=== PATIENT | female | born 1965 | race Caucasian/White ===

== ENCOUNTER 2017-05-09 05:04 | Day surgery (SDC) | payer BC ==
[2017-05-07 08:49] LABS: HEMATOCRIT 43.7 % (36.0-48.0); HEMOGLOBIN 14.7 g/dL (12-16); MCH 30.1 pg (26.0-34.0); MCHC 33.6 g/dL (31.0-37.0); MCV 89.4 fL (80.0-100.0); RBC 4.89 10x6/uL (4.00-5.40); RDW 13.2 % (11.5-14.5); WBC 6.7 10x3/uL (4.8-10.8)
[~2017-05-09] VITALS: Ht 160 cm; Wt 86.2 kg
[~2017-05-09 05:04] MED LIST: NATURE-THROID32.4 MG PO; PHENOBARBITAL30 MG PO; PROMETRIUM200 MG PO
[2017-05-09 08:37] VITALS: BP 128/64; Ht 160 cm; Wt 86.2 kg
[2017-05-09 09:03] LABS: HCG URINE NEGATIVE (NEGATIVE)
--- NOTE | 2017-05-09 14:19 | NUR ---
1330--IV DC'D, PT UP TO DRESS AT THIS TIME. SCOTT IRAHETA 1400--DISCHARGE INSTRUCTIONS GIVEN, PT VERBALIZES UNDERSTANDING. PT OFF UNIT VIA WC. SCOTT IRAHETA
--- NOTE | 2017-05-11 11:13 | HP ---
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 The patient's history and physical examination is on the chart. It is typed history and physical. It is unchanged since the patient saw me in the office. The risks, possible complications and alternatives to procedure were explained to the patient. She elects to proceed. This is a patient of Dr. Bermeo'janell. TRANSINT:[id number] Voice Confirmation ID: [id number] DOCUMENT ID: [id number] KAILYN OTOOLE MD at 1113 CC: LEILANI ROBERTS DO, [place], TERRI MD and COLBY BERMEO [id number] DICTATION DATE: 05/09/17 1225 HOSPITAL TELEVISION RENTAL CLERK: 05/09/17 1319 [facility] 05/09/[address] [address]
--- NOTE | 2017-05-11 11:13 | OP ---
PATIENT NAME: MARIANNA CELIS MEDICAL RECORD: [id number] :63 LOCATION:D.OPS ADMISSION DATE: SURGEON: NIKKO OTOOLE MD DATE OF OPERATION: 05/09/2017 PREOPERATIVE DIAGNOSIS: History of recurrent serrated adenoma of the cecum, which has been tattooed. POSTOPERATIVE DIAGNOSES: 1. History of recurrent serrated adenoma of the cecum, which has been tattooed with no evidence of recurrence; however, there was eschar present within cecum. 2. A new 1.1-cm sessile polyp at 1.1 meters. PROCEDURES: 1. Total colonoscopy to cecum. 2. Hot biopsy forceps polypectomy times 1. 3. Biopsy of scar in the cecum with treatment utilizing the argon plasma health information coder. SURGEON: Nikko Otoole MD REEL HOOKER: None. BLOOD LOSS: Minimal. ANESTHESIA: General. COMPLICATIONS: None. The risks, possible complications, and alternatives to the procedure were explained to the patient. She elects to proceed. OPERATIVE COURSE: The patient was conveyed to the operating room electively on 05/09/2017. General anesthesia was induced by the anesthesia staff. The patient was placed in the Ann position. A digital rectal examination was performed. A colonoscope was inserted through the anus. It was easily advanced to the cecum. Upon withdrawal, I dragged the folds. I irrigated and aspirated extensively. I noted no tattoo in the cecum. I noted no recurrent polyp. There was a scar, which I biopsied utilizing the cold endoscopic biopsy forceps. I then treated this area with the argon plasma health information coder utilizing the right colon setting in the forced mode. I continued to withdraw the endoscope. I identified a sessile polyp at 1.1 m. This was removed in its entirety utilizing the hot biopsy forceps polypectomy technique. I then slowly withdrew the endoscope. I dragged the folds. The pullback was greater than 19-minute pullback. A retroflexed view was obtained in the rectum. I then unretroflexed the scope and removed it under direct vision. I will plan to see the patient in my office in 2-3 weeks. I will plan for her next colonoscopy with the argon plasma health information coder to take place in 1 year as she has had a recurrent serrated adenoma. TRANSINT:[id number] Voice Confirmation ID: [id number] DOCUMENT ID: [id number] OPERATIVE REPORT [id number] MARIANNA CELIS ROBERT MD at 1113 CC: [id number] DICTATION DATE: 05/09/17 1240 STATE [employer]AL [employer]ATIONS DEPUTY DIRECTOR: 05/09/17 1619 [facility] 05/09/17 [id number] [place] [address]
== END 2017-05-09 14:00 | disposition home or self-care (01) ==
LOC: D.OPS 05:04 → D.PAN 11:15 → D.OPS 11:15
PROVIDERS: Anesthesiology; Surgery
DX: K63.5 Polyp of colon (principal); E03.9 Hypothyroidism, unspecified; K21.9 Gastro-esophageal reflux disease without esophagitis; E66.9 Obesity, unspecified; Z68.33 Body mass index [BMI] 33.0-33.9, adult; Z01.812 Encounter for preprocedural laboratory examination

== ENCOUNTER 2018-05-29 09:25 | Day surgery (SDC) | payer BC ==
[2018-05-27 11:58] LABS: HEMATOCRIT 42.3 % (36.0-48.0); HEMOGLOBIN 14.5 g/dL (12-16); MCH 29.1 pg (26.0-34.0); MCHC 34.3 g/dL (31.0-37.0); MCV 84.8 fL (80.0-100.0); RBC 4.99 10x6/uL (4.00-5.40); RDW 13.5 % (11.5-14.5); WBC 6.1 10x3/uL (4.8-10.8)
[~2018-05-29] VITALS: Ht 160 cm; Wt 93.0 kg
--- NOTE | ~2018-05-29 | OP ---
PATIENT NAME: MARIANNA CELIS MEDICAL RECORD: [id number] :63 LOCATION:D.OPS ADMISSION DATE: SURGEON: KAILYN OTOOLE MD DATE OF OPERATION: 05/29/2018 PREOPERATIVE DIAGNOSIS: History of recurrent serrated adenoma of the cecum, which had been tattooed in the past and there was no evidence of recurrence back in April of 2017. POSTOPERATIVE DIAGNOSES: History of recurrent serrated adenoma of the cecum, which had been tattooed. I saw no evidence of the tattoo; however, there was recurrence of the adenoma within a scar and this is a periappendiceal polyp. PROCEDURES: 1. Total colonoscopy to cecum. 2. Polypectomy utilizing endoscopic mucosal resection; however, the polyp was lost. Tattooing on either side of the polypectomy site for possible surgical resection in the future. 3. Placement of 3 endoscopic clips to reinforce the area where the polypectomy had been performed. SURGEON: Kailyn Otoole MD LOCAL COMPANY REFRIGERATED TRUCK DRIVER: None. BLOOD LOSS: Minimal. ANESTHESIA: General. COMPLICATIONS: None. The risks, possible complications, and alternatives to the procedure were explained to the patient. She elected to proceed. The discussion specifically included, but was not limited to, bleeding, requiring emergency reoperation; infection; endoscopic perforation as well as possible need for an operative procedure in the future. OPERATIVE COURSE: The patient was conveyed to the operating room electively on 05/29/2018. General anesthesia was induced by the anesthesia staff. The patient was placed in the Ann position. Digital rectal examination was performed. A colonoscope was inserted through the anus. It was easily advanced to the cecum. The prep was inadequate. I irrigated in the cecum vigorously. I identified of the polyp. I advanced sclerotherapy needle in 3 areas around the polyp. I performed a submucosal injection of Eleview. There was a good lift to the polyp. Endoscopic snare was advanced. I was able to snare across the base of the polyp. During the process of irrigation and suctioning however, the polyp was lost despite the use of a polyp trap. I had to go fairly deep in order to remove the polyp. A row of endoscopic clips was applied. These were 3 endoscopic clips in order to help avoid perforation as the patient will be at significant risk for postpolypectomy syndrome or delayed perforation. I then advanced a sclerotherapy needle and I injected tattoo on either side of the polypectomy site in the submucosal space. I then slowly withdrew the OPERATIVE REPORT [id number] MARIANNA CELIS endoscope. I irrigated and aspirated extensively. The pullback was greater than a 19-minute pullback. I utilized normal imaging as well as narrow band imaging. A retroflexed view was obtained in the rectum. I then unretroflexed the scope and removed it under direct vision. There is no reason for the patient to follow up with me in the office. That is because there is no pathology to review with the patient. I will give the patient the option of undergoing a laparoscopic cecectomy in the future if she would like. TRANSINT:[id number] Voice Confirmation ID: [id number] DOCUMENT ID: [id number] KAILYN OTOOLE MD at 1415 CC: COLBY ORTEGA and FAUSTO HERNANDEZ MD [id number] DICTATION DATE: 05/29/18 1716 TAPE SEWING MACHINE OPERATOR: 05/29/18 1840 [facility] 05/29/18 [facility] [address] [place] [address]
[~2018-05-29 09:25] MED LIST changes: +FLUTICASONE PRO16 GM NASAL
[2018-05-29 11:02] VITALS: BP 122/68; Ht 160 cm; Wt 93.0 kg
== END 2018-05-29 19:05 | disposition home or self-care (01) ==
LOC: D.OPS 09:25 → D.PAN 11:45 → D.OPS 11:45 → D.PAN 12:15 → D.OPS 12:15
PROVIDERS: Anesthesiology
DX: K63.5 Polyp of colon (principal); Z87.19 Personal history of other diseases of the digestive system

== ENCOUNTER 2018-07-31 06:30 | Inpatient (IN) | payer BC ==
[2018-07-30 10:05] LABS: MCH 28.7 pg (26.0-34.0); MCHC 33.3 g/dL (31.0-37.0); MCV 86.1 fL (80.0-100.0); MEAN PLATELET VOLUME 10.1 fL (7.4-10.4); RBC 4.53 10x6/uL (4.00-5.40); RDW 14.3 % (11.5-14.5); WBC 6.3 10x3/uL (4.8-10.8)
[2018-07-30 10:23] LABS: CALC OSMOLALITY 280 mosm/kg (275-300); CALCIUM 9.4 mg/dL (8.5-10.1); CARBON DIOXIDE 26.2 mmol/L (21.0-32.0); CHLORIDE - SERUM 103 mmol/L (98-107); CREATININE - SERUM 0.8 mg/dL (0.6-1.3); GLUCOSE 90 mg/dL (74-106); POTASSIUM - SERUM 4.4 mmol/L (3.5-5.1); SODIUM 140 mmol/L (136-145); UREA NITROGEN 17 mg/dL (7-18); eGFR NON AFRICAN AMERICAN 79 mL/min (90-120)
[2018-07-31] VITALS (10 sets, daily range): BP systolic 94–146; BP diastolic 42–66; Ht 160 cm; Wt 95.9 kg
[~2018-07-31] VITALS: Ht 160 cm; Wt 95.9 kg
--- NOTE | ~2018-07-31 | OP ---
PATIENT NAME: MARIANNA CELIS MEDICAL RECORD: [id number] :63 LOCATION:D.MS [address] ADMISSION DATE: SURGEON: KAILYN OTOOLE MD DATE OF OPERATION: 07/31/2018 This is an digital marketing assistant's NOTE I assisted Dr. Jimmy Arguelles with laparoscopic cecectomy. My involvement in the operation included insertion of the Veress needle in the left upper quadrant. Insufflation of the abdomen. Insertion of the 5-mm trocar in the left lower quadrant. Insertion of the 5-mm trocar in the right groin. Insertion of a 12-mm trocar at the umbilicus and then later in the operation insertion of a 5-mm trocar in the right upper quadrant. I began inspecting the abdomen and once I determined that the patient had intestinal malrotation, I asked my partner, Dr. Jimmy Arguelles to come and help me analyze the situation. I then turned over the surgical responsibility to him and I was the digital marketing assistant and he was the primary surgeon on the case. Further involvement in the operation by me included running the camera. Grasping some manipulation tissue. Grasping the appendix and pulling it so that cecectomy could be performed grabbing portion of the cecum, so that a cecectomy could be performed, opening up the specimens on the back table. It appeared that the scar where the patient had the polyp was present within one of the specimens. I did not note a metallic clip in the one specimen that I did open. We then inspected the abdomen and identified no full thickness enterotomies or colotomies. There was no bleeding. Dr. Arguelles closed the fascia and then I closed the skin at the trocar sites. Interrupted 4-0 Vicryl Rapide were used to close the skin at the umbilicus and the other skin incisions were closed with interrupted intracuticular 3-0 Vicryls and then benzoin and Steri-Strips. TRANSINT:[id number] Voice Confirmation ID: [id number] DOCUMENT ID: [id number] KAILYN OTOOLE MD CC: COLBY ORTEGA and FAUSTO HERNANDEZ MD [id number] DICTATION DATE: 07/31/18 1301 AUTOMOTIVE PARTS SPECIALIST: 07/31/18 1323 [facility] [address] [place] [address]
--- NOTE | ~2018-07-31 | MORECARE ---
CASE MANAGEMENT DISCHARGE SUMMARY PATIENT: MARIANNA CELIS UNIT: [id number] ADM DATE: 07/31/18 AGE: 52 : 63 SEX: F ROOM/BED: D.2239 AUTHOR: JIGNESH MEHTA PHYSICIAN: REFERRING PHYSICIAN: KAILYN OTOOLE MD DATE OF SERVICE: 08/02/18 Discharge Plan Patient Name: MARIANNA CELIS Facility: [facility]:[place] : 1965 Planned Disposition: Home Anticipated Discharge Date: 08/02/18 Discharge Date: Expected LOS: 2 Initial Reviewer: [email or web address] Initial Review Date: 08/01/2018 Generated: 08/02/18 11:09 am Comments DCP- Discharge Planning Updated by [email or web address]: Deborah Rodriguez on 08/02/18 9:[address] Patient Name: MARIANNA CELIS Encounter No: [id number] : 1965 Primary Insurance: BLUE CROSS FEP Anticipated DC Date: 08-02-2018 Planned Disposition: Home External Planned Provider: : DCP follow-up note: Patient and family in agreement with discharge plan. Her is here to take her home. No changes to plan. Case management will follow and assist as needed. Deborah Rodriguez DCP- Discharge Planning Updated by [email or web address]: Deborah Rodriguez on 08/01/18 3:[address] Patient Name: MARIANNA CELIS Admission Status: Elective Accout number: [id number] Admission Date: 07-31-2018 : 1965 Admission Diagnosis: Attending: KAILYN OTOOLE Current LOS: 1 Anticipated DC Date: 08-02-2018 Planned Disposition: Home Primary Insurance: BLUE CROSS FEP Discharge Planning Comments: CM met with patient to discuss discharge planning, she is alone in the room. She states she is independent with all ADL's and IADL's. States she lives with her , he will drive her home on discharge. States she does not have any DME or outside services assisting in the home and declines need for DME or home health services. No needs identified. CM will continue to follow and assist with discharge planning/needs. Tobacco Warehouse Manager: Deborah Rodriguez DCPIA - Discharge Planning Initial Assessment Updated by [email or web address]: Deborah Rodriguez on 08/01/18 4:13 pm * Is the patient Alert and Oriented? Yes * How many steps to enter\exit or inside your home? 0/0 * PCP Dr. Neff in [facility] * Pharmacy [facility] in [place] * Preadmission Environment Home with Family * ADLs Independent * Equipment None * List name and contact numbers for known caregivers / representatives who currently or will assist patient after discharge: [facility] - [phone] * Verbal permission to speak to the caregivers and representatives has been obtained from the patient. Yes * Community resources currently utilized None * Additional services required to return to the preadmission environment? No * Can the patient safely return to the preadmission environment? Yes * Has this patient been hospitalized within the prior 30 days at any hospital? No Last DP export: 08/01/18 3:19 Patient Name: MARIANNA CELIS Page 52650 at 1009 All edits/amendments must be made on the electronic document DICTATION DATE: 08/02/18 100 PUMPING PLANT OPERATOR: JANETTE 08/02/18 1009 RPT#: [id number] DC DATE: STATUS: ADM IN [facility] [address] [place] [address] END OF REPORT
--- NOTE | ~2018-07-31 | OP ---
PATIENT NAME: MARIANNA CELIS MEDICAL RECORD: [id number] :63 LOCATION:D.MS [place]39 ADMISSION DATE:07/31/18 SURGEON: JONNATHAN CHAVEZ MD DATE OF OPERATION: 07/31/2018 SURGEON: Jonnathan Chavez MD OVERHEAD WORKER SURGEON: Nikko Valle MD PROCEDURE PERFORMED: Laparoscopic partial cecectomy, laparoscopic appendectomy and laparoscopic mobilization of congenital malrotation. OPERATIVE COURSE: I was called into the OR by my partner, Dr. Valle, to come into the OR during the procedure. He had previously placed the trocars. The patient was taken to the operating room for the purpose of an unresectable and recurrent cecal polyp. The patient had definitively different anatomy upon laparoscopic visual inspection of the abdomen. The small bowel was rotated and placed into the right lower quadrant. The cecum was tethered to the left posterior pelvic wall. The transverse colon came up along the midline of the abdomen before turning a large portion of the colon was in the left upper quadrant. There were multiple Cisco bands along the right pericolic gutter. The avascular Cisco's bands were taken down with blunt dissection with combination of the EnSeal device. This was continued all the way through the area of the hepatic flexure. There was another Cisco band noted running over the anterior course of the second portion of the duodenum and into somewhere in the posterior liver, gallbladder fossa region. After mobilization of this, the right colon was freed from its lateral attachments. Careful and meticulous dissection continued on the medial side of the right colon until the adhesive bands were identified in the left lower quadrant and pelvis. These avascular bands were taken down at this time again using the EnSeal device allowing for full mobilization of the right colon with the mesentery intact. The terminal ileum was easily identified at this point as well as the appendix. The tattooed spots were identified along the cecum. At this time, the GAUTAM stapler was used to perform a laparoscopic appendectomy as well as a partial cecectomy, include the area of tattooed cecum. This was accomplished with a total of 3 firings of the laparoscopic GAUTAM stapler. All specimens were removed through the 12-mm trocar site and sent for permanent pathology. The abdomen was copiously irrigated and suctioned. Careful attention was paid to hemostasis, which was obtained on the staple line with additional electrocautery. At this time, all remaining instruments were removed. The 12-mm trocar site was closed with a Shane-Felicity suture passer and 0 Vicryl suture. Again, the abdomen was inspected with no evidence of bowel injury. No evidence of bleeding. The abdomen was desufflated. The trocars were removed. Skin was closed as per the remaining portion of Dr. Valle's note. TRANSINT:[id number] Voice Confirmation ID: [id number] DOCUMENT ID: [id number] OPERATIVE REPORT [id number] MARIANNA CELIS JAMES J MD at 0800 CC: [id number] DICTATION DATE: 07/31/18 1404 DIRECTOR OF CARDIOPULMONARY SERVICES: 07/31/18 1540 ADM IN [id number] [place] [address]
--- NOTE | ~2018-07-31 | MORECARE ---
CASE MANAGEMENT DISCHARGE SUMMARY PATIENT: MARIANNA CELIS UNIT: [id number] ADM DATE: 07/31/18 AGE: 52 : 63 SEX: F ROOM/BED: D.2239 AUTHOR: JANINE,DOC PHYSICIAN: REFERRING PHYSICIAN: KAILYN OTOOLE MD DATE OF SERVICE: 08/01/18 Discharge Plan Patient Name: MARIANNA CELIS Facility: [facility]:[place] : 1965 Planned Disposition: Home Anticipated Discharge Date: 08/02/18 Discharge Date: Expected LOS: 2 Initial Reviewer: [email or web address] Initial Review Date: 08/01/2018 Generated: 08/01/18 5:18 pm Comments DCP- Discharge Planning Updated by [email or web address]: Deborah Rodriguez on 08/01/18 3:[address] Patient Name: MARIANNA CELIS Admission Status: Elective Accout number: [id number] Admission Date: 07-31-2018 : 1965 Admission Diagnosis: Attending: KAILYN OTOOLE Current LOS: 1 Anticipated DC Date: 08-02-2018 Planned Disposition: Home Primary Insurance: BLUE CROSS FEP Discharge Planning Comments: CM met with patient to discuss discharge planning, she is alone in the room. She states she is independent with all ADL's and IADL's. States she lives with her , he will drive her home on discharge. States she does not have any DME or outside services assisting in the home and declines need for DME or home health services. No needs identified. CM will continue to follow and assist with discharge planning/needs. Bag Inspector: Deborah Rodriguez DCPIA - Discharge Planning Initial Assessment Updated by [email or web address]: Deborah Rodriguez on 08/01/18 4:13 pm * Is the patient Alert and Oriented? Yes * How many steps to enter\exit or inside your home? 0/0 * PCP Dr. Neff in [facility] * Pharmacy [facility] in [place] * Preadmission Environment Home with Family * ADLs Independent * Equipment None * List name and contact numbers for known caregivers / representatives who currently or will assist patient after discharge: [facility] - [phone] * Verbal permission to speak to the caregivers and representatives has been obtained from the patient. Yes * Community resources currently utilized None * Additional services required to return to the preadmission environment? No * Can the patient safely return to the preadmission environment? Yes * Has this patient been hospitalized within the prior 30 days at any hospital? No Patient Name: MARIANNA CELIS Page 31917 at 1619 All edits/amendments must be made on the electronic document DICTATION DATE: 08/01/181617 CONSERVATION OFFICER: JANETTE 08/01/181617 RPT#: [id number] DC DATE: STATUS: ADM IN [facility] [address] [place] [address] END OF REPORT
[~2018-07-31 06:30] MED LIST changes: +NATURE THROID PO
[2018-07-31 07:56] LABS: HCG URINE NEGATIVE (NEGATIVE)
[2018-08-01 01:05] VITALS: BP 96/45
[2018-08-01 06:16] LABS: BASOPHILS 0.1 % (0-2); EOSINOPHILS 0.1 % (0-7); HEMATOCRIT 35.1 % (36.0-48.0); HEMOGLOBIN 11.5 g/dL (12-16); IMMATURE GRANULOCYTES 0.3 % (0-5); LYMPHOCYTES 29.1 % (15-50); MCH 28.4 pg (26.0-34.0); MCHC 32.8 g/dL (31.0-37.0); MCV 86.7 fL (80.0-100.0); MEAN PLATELET VOLUME 10.2 fL (7.4-10.4); MONOCYTES 8.3 % (2-11); NEUTROPHILS 62.1 % (40-80); PLATELET COUNT 200 10x3/uL (130-400); RBC 4.05 10x6/uL (4.00-5.40); RDW 14.9 % (11.5-14.5); WBC 7.4 10x3/uL (4.8-10.8)
[2018-08-01 06:29] VITALS: BP 114/46
[2018-08-01 06:33] LABS: ALBUMIN 2.7 g/dL (3.4-5.0); ALKALINE PHOSPHATASE 77 U/L (46-116); ALT (SGPT) 53 U/L (10-68); BILIRUBIN - TOTAL 0.33 mg/dL (0.2-1.3); CALC OSMOLALITY 276 mosm/kg (275-300); CALCIUM 8.4 mg/dL (8.5-10.1); CARBON DIOXIDE 23.7 mmol/L (21.0-32.0); CHLORIDE - SERUM 106 mmol/L (98-107); CREATININE - SERUM 0.8 mg/dL (0.6-1.3); GLUCOSE 103 mg/dL (74-106); MAGNESIUM - SERUM 1.8 mg/dL (1.8-2.4); PHOSPHOROUS 3.2 mg/dL (2.5-4.9); PROTEIN - SERUM 6.3 g/dL (6.4-8.2); SODIUM 139 mmol/L (136-145); UREA NITROGEN 11 mg/dL (7-18); eGFR NON AFRICAN AMERICAN 79 mL/min (90-120)
[2018-08-01 08:43] VITALS: BP 126/56
[2018-08-01 12:10] VITALS: BP 102/54
[2018-08-01 16:12] VITALS: BP 123/63
[2018-08-01 20:00] VITALS: BP 106/62
[2018-08-02 00:43] VITALS: BP 122/60
[2018-08-02 04:00] VITALS: BP 118/60
[2018-08-02 06:15] LABS: BASOPHILS 0.2 % (0-2); EOSINOPHILS 0.8 % (0-7); HEMATOCRIT 35.9 % (36.0-48.0); HEMOGLOBIN 11.5 g/dL (12-16); IMMATURE GRANULOCYTES 0.2 % (0-5); LYMPHOCYTES 35.5 % (15-50); MCH 28.7 pg (26.0-34.0); MEAN PLATELET VOLUME 10.5 fL (7.4-10.4); MONOCYTES 7.5 % (2-11); NEUTROPHILS 55.8 % (40-80); RBC 4.01 10x6/uL (4.00-5.40); RDW 15.2 % (11.5-14.5); WBC 6.4 10x3/uL (4.8-10.8)
[2018-08-02 06:16] LABS: MCV 89.5 fL (80.0-100.0); PLATELET COUNT 145 10x3/uL (130-400)
[2018-08-02 06:17] LABS: ALBUMIN 2.8 g/dL (3.4-5.0); ALKALINE PHOSPHATASE 75 U/L (46-116); ALT (SGPT) 45 U/L (10-68); BILIRUBIN - TOTAL 0.15 mg/dL (0.2-1.3); CALC OSMOLALITY 276 mosm/kg (275-300); CALCIUM 8.4 mg/dL (8.5-10.1); CARBON DIOXIDE 21.5 mmol/L (21.0-32.0); CHLORIDE - SERUM 107 mmol/L (98-107); CREATININE - SERUM 0.7 mg/dL (0.6-1.3); GLUCOSE 99 mg/dL (74-106); POTASSIUM - SERUM 4.3 mmol/L (3.5-5.1); PROTEIN - SERUM 6.1 g/dL (6.4-8.2); SODIUM 139 mmol/L (136-145); UREA NITROGEN 9 mg/dL (7-18); eGFR NON AFRICAN AMERICAN > 90 mL/min (90-120)
[2018-08-02 08:34] VITALS: BP 111/52
[2018-08-02] MEDS ORDERED: NORCO 10-325 TA1 TAB PO (08:49)
== END 2018-08-02 10:40 | disposition home or self-care (01) | DRG 330 ==
LOC: D.MS 06:30 → D.OPS 06:30 → D.PAN 09:00 → D.OPS 09:00 → D.PAN 09:20 → D.MS 14:05 → D.OPS 14:06 → D.MS 14:07
PROVIDERS: Anesthesiology; Surgery
PROC: 0DTJ4ZZ Resection of Appendix, Percutaneous Endoscopic Approach (ICD-10-PCS; 2018-07-31)
PROC: 0DS Gastrointestinal System, Reposition (ICD-10-PCS; 2018-07-31)
PROC: 0DTH4ZZ Resection of Cecum, Percutaneous Endoscopic Approach (ICD-10-PCS; principal; 2018-07-31 08:45)
DX: K63.5 Polyp of colon (principal); Q43.3 Congenital malformations of intestinal fixation